=== PATIENT | male | born 1965 | race American Indian/Alaskan Native ===

== ENCOUNTER 2020-12-18 18:06 | Emergency (ER) | payer SELFPAY ==
[2020-12-18] MEDS ORDERED: SULFAMETHOXAZOLE/TRIMETHOPRIM 800/160MG DS TAB PO ONE ×2 (19:36→21:58)
[2020-12-18] MEDS ORDERED: IBUPROFEN 600 MG TAB PO ONE ×2 (19:36→21:58)
--- NOTE | 2020-12-18 19:39 | Event Note ---
ED Screening Note Date of service: 12/18/20 Time: 19:37 ED Screening Note: Patient is a 55-year-old -[place] male with no past medical history except chronic recurrent left foot ulcers presents to the ED with complaint of worsening painful left plantar foot ulcerated wounds for the last 1 month, worse in the last 2 days. Patient states that the pain is worse with ambulation or any pressure on the left plantar foot. Patient denies dizziness, fever, chills, nausea, vomiting, numbness and tingling or weakness of lower extremities bilaterally, back pain, fall or traumatic injury. This initial assessment/diagnostic orders/clinical plan/treatment(s) is/are subject to change based on patients health status, clinical progression and re- assessment by fellow clinical providers in the ED. Further treatment and workup at subsequent clinical providers discretion. Patient/guardian urged not to elope from the ED as their condition may be serious if not clinically assessed and managed. Initial orders include: CBC, CMP, left foot x-ray
[2020-12-18 20:05] LABS: Basophils % (Auto) 0.8 % (0.0-1.8); Eosinophils # (Auto) 0.2 K/mm3 (0.0-0.4); Eosinophils % (Auto) 5.4 % (0.0-4.3); Hematocrit 37.8 % (35.5-45.6); Hemoglobin 13.1 gm/dl (11.8-15.2); Lymphocytes # (Auto) 0.8 K/mm3 (1.2-5.4); Lymphocytes % (Auto) 23.5 % (13.4-35.0); Mean Corpuscular HGB Conc 35 % (32-34); Mean Corpuscular Volume 90 fl (84-94); Monocytes # (Auto) 0.5 K/mm3 (0.0-0.8); Monocytes % (Auto) 14.2 % (0.0-7.3); Platelet Count 158 K/mm3 (140-440); Red Blood Count 4.19 M/mm3 (3.65-5.03)
[2020-12-18 20:13] LABS: Alanine Aminotransferase 9 units/L (7-56); Albumin 4.1 g/dL (3.9-5); BUN/Creatinine Ratio 12; Blood Urea Nitrogen 11 mg/dL (9-20); Calcium 8.6 mg/dL (8.4-10.2); Hemolysis Index 7
--- NOTE | 2020-12-18 20:51 | XRay Report ---
LEFT FOOT 3 VIEW(S) INDICATION / CLINICAL INFORMATION: Infected foot ulcer - r/o osteomyelitis COMPARISON: None available. FINDINGS: BONES / JOINT(S): No acute fracture or subluxation. 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 No ulcer/soft tissue gas visualized. ADDITIONAL FINDINGS: No cortical destruction to suggest osteomyelitis Signer Name: Andrei Villavicencio MD Signed: 12/18/2020 8:47 PM Workstation Name: [email or web address]
--- NOTE | 2020-12-18 21:47 | Emergency Department Report ---
ED Extremity Problem HPI - General Chief complaint: Skin/Abscess/Foreign Body Stated complaint: POSS LT FOOT INFECTION Source: patient Mode of arrival: Ambulatory Limitations: No Limitations - History of Present Illness Initial comments: Patient is a 55-year-old -[place] male with a history of asthma and heavy tobacco abuse who presents to the ED with complaint of persistent left plantar foot pain due to multiple open ulcerated wounds for the last 1 month. Patient states that he has previously dressed the wounds while he was living in [place] until about a week ago when he relocated to [facility] and the pain has gotten worse. Patient states that the pain is especially worse with any active range of motion or weightbearing on the left foot. Patient denies traumatic injury, fall, nausea and vomiting, fever, chills, cough, shortness of breath, chest pain, back pain or change in vision. MD Complaint: extremity pain (Left plantar foot pain due to multiple ulcerated wounds), extremity swelling (right plantar foot), other (right plantar foot ulcerated wounds) -: Gradual, month(s) (1) Location: right, lower extremity (plantar foot) History of Same: Yes -: Yes arthralgia, No fever, No associated dyspnea, No associated chest pain Radiation: none Severity scale (0 -10): 8 Quality: aching, sharp Consistency: constant Improves with: nothing Worsens with: weight bearing, walking, exertion, palpation Associated Symptoms: denies other symptoms, arthralgias, other (open ulcerated right plantar foot wounds). denies: chest pain, shortness of breath, myalgias - Related Data Previous Rx's Medication Instructions Recorded Last Taken Type Ibuprofen [Motrin] 600 mg PO Q8H PRN #30 tablet 12/18/20 Unknown Rx Sulfamethoxazole/Trimethoprim 1 each PO Q12H #20 tablet 12/18/20 Unknown Rx [Bactrim DS TAB] traMADoL [Ultram] 50 mg PO Q6HR PRN #12 tablet 12/18/20 Unknown Rx Allergies Allergy/AdvReac Type Severity Reaction Status Date / Time No Known Allergies Allergy Unverified 12/18/20 18:36 ED Review of Systems ROS: Stated complaint: POSS LT FOOT INFECTION Other details as noted in HPI Constitutional: denies: chills, fever Eyes: denies: eye pain, eye discharge, vision change ENT: denies: ear pain, throat pain Respiratory: denies: cough, shortness of breath, wheezing Cardiovascular: denies: chest pain, palpitations Endocrine: no symptoms reported Gastrointestinal: denies: abdominal pain, nausea, diarrhea Genitourinary: denies: urgency, dysuria Musculoskeletal: arthralgia (Left plantar foot pain due to multiple ulcerated wounds). denies: back pain, joint swelling Skin: other (Multiple open ulcerated wounds on left plantar foot with pain). denies: rash, lesions Neurological: denies: headache, weakness, paresthesias Psychiatric: denies: anxiety, depression Hematological/Lymphatic: denies: easy bleeding, easy bruising ED Past Medical Hx - Past Medical History Previous Medical History?: Yes Hx Asthma: Yes - Surgical History Past Surgical History?: No - Medications Home Medications: Home Medications Medication Instructions Recorded Confirmed Last Taken Type Ibuprofen [Motrin] 600 mg PO Q8H PRN #30 tablet 12/18/20 Unknown Rx Sulfamethoxazole/Trimethoprim 1 each PO Q12H #20 tablet 12/18/20 Unknown Rx [Bactrim DS TAB] traMADoL [Ultram] 50 mg PO Q6HR PRN #12 tablet 12/18/20 Unknown Rx ED Physical Exam - General Limitations: No Limitations General appearance: alert, in no apparent distress - Head Head exam: Present: atraumatic, normocephalic, normal inspection - Eye Eye exam: Present: normal appearance, PERRL, EOMI Pupils: Present: normal accommodation - ENT ENT exam: Present: normal exam, normal orophraynx, mucous membranes moist, TM's normal bilaterally, normal external ear exam - Neck Neck exam: Present: normal inspection, full ROM - Respiratory Respiratory exam: Present: normal lung sounds bilaterally. Absent: respiratory distress, wheezes, rales, rhonchi, chest wall tenderness, accessory muscle use, decreased breath sounds, prolonged expiratory - Cardiovascular Cardiovascular Exam: Present: regular rate, normal rhythm, normal heart sounds. Absent: systolic murmur, diastolic murmur, rubs, gallop - GI/Abdominal GI/Abdominal exam: Present: soft, normal bowel sounds. Absent: tenderness, guarding, rebound, hyperactive bowel sounds, hypoactive bowel sounds, organomegaly, mass - Extremities Exam Extremities exam: Present: normal inspection, full ROM, tenderness (Palpable left plantar foot tenderness due to multiple ulcerated open wounds), normal capillary refill. Absent: pedal edema, joint swelling, calf tenderness - Back Exam Back exam: Present: normal inspection, full ROM. Absent: tenderness, CVA tenderness (R), muscle spasm, paraspinal tenderness, vertebral tenderness, rash noted - Neurological Exam Neurological exam: Present: alert, oriented X3, CN II-XII intact, normal gait, reflexes normal - Psychiatric Psychiatric exam: Present: normal affect, normal mood - Skin Skin exam: Present: warm, dry, intact, normal color, other (Multiple tender open left plantar wounds). Absent: rash ED Course Vital Signs 12/18/20 18:36 Temperature 97.8 F Pulse Rate 79 Respiratory 14 Rate Blood Pressure 118/73 O2 Sat by Pulse 98 Oximetry ED Medical Decision Making - Lab Data Result diagrams: 12/18/20 19:37 12/18/20 19:37 - Radiology Data Radiology results: report reviewed, image reviewed [address] [address] XRay Report Signed Patient: ADRIAN MORROW JR MR#: [id number] : 1965 Acct:[id number] Age/Sex: 55 / M ADM Date: 12/18/20 Loc: ED Attending Dr: Ordering Physician: ZAHRA WICK Date of Service: 12/18/20 Procedure(s): XR foot 3+V LT Accession Number(s): [id number] cc: ZAHRA WICK Fluoro Time In Minutes: LEFT FOOT 3 VIEW(S) INDICATION / CLINICAL INFORMATION: Infected foot ulcer - r/o osteomyelitis COMPARISON: None available. FINDINGS: BONES / JOINT(S): No acute fracture or subluxation. Osseous bunion, hallux valgus and moderate degenerative arthrosis first MTP joint SOFT TISSUES: Mild dorsal soft tissue swelling. No ulcer/soft tissue gas visualized. ADDITIONAL FINDINGS: No cortical destruction to suggest osteomyelitis Signer Name: Andrei Villavicencio MD Signed: 12/18/2020 8:47 PM Workstation Name: [id number] Transcribed By: TL Dictated By: Andrei Villavicencio MD Electronically Authenticated By: Andrei Villavicencio MD Signed Date/Time: 12/18/202046 DD/ 44 TD/TT: - Medical Decision Making This is a 55-year-old -[place] male with a history of asthma and heavy tobacco abuse who presents to the ED with complaint of persistent left plantar foot pain due to multiple open ulcerated wounds for the last 1 month. Patient states that he has previously dressed the wounds while he was living in [place] until about a week ago when he relocated to [facility] and the pain has gotten worse. Patient states that the pain is especially worse with any active range of motion or weightbearing on the left foot. In the ED, patient is alert and oriented x3 and is not in distress. Patient was treated for pain in the ED and also given initial oral antibiotics in the ED. The wound was cleaned thoroughly, debrided and dressed appropriately. Lab test results were reviewed and are all nonactionable. Left foot x-ray showed no acute fractures or subluxation or any cortical signs to suggest osteomyelitis. Patient was therefore discharged home on pain medications and oral antibiotics and advised to follow-up with his primary care physician in 5 to 7 days for reevaluation. Patient is advised return to the ED immediately if symptoms get worse. - Differential Diagnosis ulcerated wounds; foot pain; cellulitis Critical care attestation.: If time is entered above; I have spent that time in minutes in the direct care of this critically ill patient, excluding procedure time. ED Disposition Clinical Impression: Ulcer of left foot, limited to breakdown of skin, Cellulitis of left foot excluding toes Disposition: DC-01 TO HOME OR SELFCARE Is pt being admited?: No Does the pt Need Aspirin: No Condition: Stable Instructions: Cellulitis, Adult, [id number], Foot Pain Additional Instructions: Take medication with food, drink plenty of fluids and follow-up with your primary care physician in 5 to 7 days for reevaluation. Return to the ED immediately if symptoms get worse. Prescriptions: Sulfamethoxazole/Trimethoprim [Bactrim DS TAB] 1 each PO Q12H #20 tablet Ibuprofen [Motrin] 600 mg PO Q8H PRN #30 tablet PRN Reason: Pain traMADoL [Ultram] 50 mg PO Q6HR PRN #12 tablet PRN Reason: Pain Referrals: [facility] [Provider Group] - 7-10 days HARRISON BONILLA DPM [Staff Physician] - 7-10 days Time of Disposition: 21:49 Print Language: MONGOLIAN
[2020-12-18] MEDS ORDERED: ONDANSETRON 4 MG ODT TAB PO ONE (21:58)
[2020-12-18] MEDS ORDERED: ACETAMINOPHEN W/CODEINE 300-30 MG TAB PO ONE (21:58)
[2020-12-19 05:27] VITALS: BP 128/84
== END 2020-12-18 23:00 | disposition home or self-care (01) ==
LOC: ED 18:06
DX: L97.521 Non-pressure chronic ulcer of other part of left foot limited to breakdown of skin (principal); L03.116 Cellulitis of left lower limb; J45.909 Unspecified asthma, uncomplicated; Z79.899 Other long term (current) drug therapy
CPT/HCPCS: 36415; 80053; 85025; 99284; Q0162